=== PATIENT | female | born 1955 | race Caucasian/White ===

== ENCOUNTER 2017-01-11 16:41 | Emergency (ER) | payer SELFPAY ==
[~2017-01-11] VITALS: Ht 165.1 cm; Wt 58.1 kg
[2017-01-11] MEDS ORDERED: ASPIRIN 81 MG CHEW (CHILDREN'S ASA) PO ONE (17:15)
--- NOTE | 2017-01-11 17:16 | ED General ---
General Chief Complaint: General Problems/Pain Stated Complaint: CHEST PAIN Source of Information: Patient Exam Limitations: No Limitations (AMEE RAMÍREZ APRN) History of Present Illness Time Seen by Provider: 17:13 Initial Comments To ER with reports of bilateral shoulder and chest pain as well as neck pain. 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 Pain initially started in the right shoulder and was worsened with movement of the right shoulder and by the end today has spread to the left she states the pain radiates down the right arm. She has also noticed some redness and swelling over the second MCP joint of the right hand. No fevers or chills. No cough. No injury. She states that she is a smoker of one pack per day for 30 years. Denies any associated nausea or dyspnea palpitations syncope or pedal edema. She does have a strong family history of coronary artery disease. Today the pain persists and is worsened tremendously by any movement of the right shoulder. She states that she has had pain in her neck radiates down the right arm and her neck will "lock up" from time to time and this is been a long- term problem for many years Timing/Duration: 24 Hours Severity: Moderate Modifying Factors: worse with Movement Associated Systoms: Chest PainNo Cough, No Diaphoresis, No Fever/Chills, No Headaches, No Nausea/Vomiting (AMEE RAMÍREZ APRN) Allergies and Home Medications Allergies Coded Allergies: No Known Allergies (Verified Allergy, Unknown, 07/17/07) Home Medications Prednisone 20 Mg Tab #8 40 MG PO DAILY Prescribed by: AMEE RAMÍREZ on 01/11/17 1828 Constitutional: see HPINo chills, No fever EENTM: see HPI Respiratory: no symptoms reported Cardiovascular: no symptoms reported Genitourinary: no symptoms reported Musculoskeletal: see HPI joint pain Skin: no symptoms reported Psychiatric/Neurological: No Symptoms Reported Hematologic/Lymphatic: No Symptoms Reported Immunological/Allergic: no symptoms reported (AMEE RAMÍREZ APRN) Past Ynxspti-Rhowux-Ntbmnq Hx Patient Social History Recent Foreign Travel: No Contact w/Someone Who Travel: No (AMEE RAMÍREZ APRN) Cardiovascular Hx Cardiac Disorders: No (AMEE RAMÍREZ APRN) Reproductive System Hx Reproductive Disorders: No (AMEE RAMÍREZ APRN) Genitourinary Hx Genitourinary Disorders: No (AMEE RAMÍREZ APRN) Gastrointestinal Hx Gastrointestinal Disorders: No (AMEE RAMÍREZ APRN) Musculoskeletal Hx Musculoskeletal Disorders: No (AMEE RAMÍREZ APRN) Endocrine Hx Endocrine Disorders: No (AMEE RAMÍREZ APRN) HEENT HX ENT Disorders: No (AMEE RAMÍREZ APRN) Psychosocial Hx Psychiatric Problems: No (AMEE RAMÍREZ APRN) Blood Transfusions Hx Blood Disorders: No (AMEE RAMÍREZ APRN) Physical Exam Vital Signs Vital Sign - Last 12Hours 01/11/17 17:10 Temp 99.0 Pulse 100 Resp 18 B/P 163/94 Pulse Ox 98 O2 Delivery Room Air (ALCIDES PATRICK MD) Vital Signs Capillary Refill : (AMEE RAMÍREZ APRN) General Appearance: No Apparent Distress WD/WN Eyes: Bilateral Eye EOMI, Bilateral Eye Normal Inspection, Bilateral Eye PERRL HEENT: PERRL/EOMI TMs Normal Normal ENT Inspection Neck: Full Range of Motion Normal Inspection Respiratory: Normal Breath Sounds No Accessory Muscle Use No Respiratory Distress Gastrointestinal: Normal Bowel Sounds Soft Extremity: Normal Capillary Refill Normal Inspection Other (there is erythema and a bit of swelling over the dorsal aspect of the second right MCP joint. No lymphangitis. Shoulders are normal in appearance without erythema ecchymosis or swelling. There is no deformity. 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 Skin: Normal Color Warm/Dry (AMEE RAMÍREZ APRN) Progress/Results/Core Measures Results/Orders Lab Results Laboratory Tests Test 01/11/17 17:10 Range/Units Activated Partial Thromboplast Time 35 24-35 SEC Alanine Aminotransferase (ALT/SGPT) 16 0-55 U/L Albumin 4.0 3.2-4.5 G/DL Alkaline Phosphatase 88 40-136 U/L Anion Gap 11 5-14 MMOL/L Aspartate Amino Transf (AST/SGOT) 13 5-34 U/L BUN/Creatinine Ratio 20 Basophils # (Auto) 0.0 0.0-0.1 10^3/uL Basophils (%) (Auto) 0 0-10 % Blood Urea Nitrogen 13 7-18 MG/DL Calcium Level 9.4 8.5-10.1 MG/DL Carbon Dioxide Level 21 21-32 MMOL/L Chloride Level 108 H 98-107 MMOL/L Creatinine 0.66 0.60-1.30 MG/DL D-Dimer 0.40 0.00-0.49 UG/ML Eosinophils # (Auto) 0.2 0.0-0.3 10^3/uL Eosinophils (%) (Auto) 3 0-10 % Estimat Glomerular Filtration Rate > 60 Glucose Level 89 70-105 MG/DL Hematocrit 41 35-52 % Hemoglobin 14.6 11.5-16.0 G/DL INR Comment 1.1 0.8-1.4 Lymphocytes # (Auto) 2.2 1.0-4.0 X 10^3 Lymphocytes (%) (Auto) 24 12-44 % Magnesium Level 2.1 1.8-2.4 MG/DL Mean Corpuscular Hemoglobin 33 25-34 PG Mean Corpuscular Hemoglobin Concent 36 32-36 G/DL Mean Corpuscular Volume 92 80-99 FL Mean Platelet Volume 10.4 7.4-10.4 FL Monocytes # (Auto) 0.9 0.0-1.0 X 10^3 Monocytes (%) (Auto) 10 0-12 % Myoglobin 22.7 10.0-92.0 NG/ML Neutrophils # (Auto) 5.9 1.8-7.8 X 10^3 Neutrophils (%) (Auto) 64 42-75 % Platelet Count 203 130-400 10^3/uL Potassium Level 4.1 3.6-5.0 MMOL/L Prothrombin Time 13.6 12.2-14.7 SEC Red Blood Count 4.43 4.35-5.85 10^6/uL Red Cell Distribution Width 13.8 10.0-14.5 % Sodium Level 140 135-145 MMOL/L Total Bilirubin 0.5 0.1-1.0 MG/DL Total Protein 7.2 6.4-8.2 G/DL Troponin I < 0.30 <0.30 NG/ML White Blood Count 9.3 4.3-11.0 10^3/uL (ALCIDES PATRICK MD) Medications Given in ED Current Medications Medications Dose Ordered Sig/Donita Route Start Time Stop Time Status Last Admin Dose Admin Aspirin 324 mg ONCE ONCE PO 01/11/17 17:15 01/11/17 17:16 DC 2/23/17 17:16 324 MG Ketorolac Tromethamine 30 mg ONCE ONCE IVP 01/11/17 18:15 01/11/17 18:16 DC 01/11/17 18:17 30 MG Prednisone 60 mg ONCE ONCE PO 01/11/17 18:30 01/11/17 18:31 DC 01/11/17 18:34 60 MG (ALCIDES PATRICK MD) Vital Signs/I&O Vital Sign - Last 12Hours 01/11/17 17:10 Temp 99.0 Pulse 100 Resp 18 B/P 163/94 Pulse Ox 98 O2 Delivery Room Air (ALCIDES PATRICK MD) Progress Note : Progress Note I have seen and evaluated the patient with Amee Ramírez APRN. I have reviewed the labs, EKG and x-ray data. Patient has heart rate of 80 on exam by me. Lungs are clear to auscultation bilaterally without wheezes. Heart is regular in rate and rhythm without murmurs. Patient had complained of rash intermittently over the last several days but is currently without rash. She did receive Toradol 30 mg IV. We will initiate steroid with prednisone 60 mg by mouth and continue outpatient prednisone. She'll also initiate outpatient Pepcid [id number]. I did discuss with her the need to follow-up with her doctor related to the need for further evaluation and studies related to her neck pain as well as further evaluation and referral to cardiology for chest discomfort. Patient does have family history of cardiac disease and she is a smoker. Try troponin and d-dimer were negative today and EKG does not indicate cardiac-related event that has been going on for the last 24 hours. She would benefit from follow-up and further evaluation with cardiology though. This was discussed with the patient at length as well as her significant other who verbalize understanding. Discharged home with return precautions. Patient verbalize understanding instructions and agreement with plan. (ALCIDES PATRICK MD) ECG Initial ECG Impression Date: Jan 11, 2017 Initial ECG Impression Time: 16:58 Initial ECG Rate: 101 Initial ECG Rhythm: S.Tach Initial ECG Impression: Normal Comment Sinus tach with borderline inferior Q waves. Similar to previous of 07/18/2007 except for rate is faster today. No evidence of ST elevation NE. Normal axis. Interpreted by me. (ALCIDES PATRICK MD) Diagnostic Imaging Diagonstic Imaging: Xray Plain Films/CT/US/NM/MRI: chest Comments NAME: [facility] REC#: [id number] PT STATUS: REG ER : 1955 PHYSICIAN: AMEE RAMÍREZ APRN ADMIT DATE: 01/11/17/ER Signed Date of Exam: 01/11/17 CHEST 1 VIEW, AP/PA ONLY INDICATION: Chest pain. Comparison with 07/17/2007. FINDINGS: The lungs are well-aerated and clear. The heart is not enlarged. No pulmonary edema. No hilar adenopathy. No pneumothorax or pleural effusion. No bony abnormalities. IMPRESSION: Normal portable chest. Dictated by: Dictated on workstation # [id number] Dict: 01/11/171741 Trans: 01/11/171820 AMRIK [id number] Interpreted by: TAMMY CHARLES MD Electronically signed by:TAMMY CHARLES MD 01/11/17 1824 (ALCIDES PATRICK MD) Departure Impression Impression: Primary Impression: Cervical radiculopathy Additional Impression: Chest pain Qualified Code: R07.9 - Chest pain, unspecified Disposition: 01 HOME, SELF-CARE Condition: Stable Departure-Patient Inst. Decision time for Depature: 18:20 (AMEE RAMÍREZ APRN) Referrals: NO,LOCAL PHYSICIAN (PCP) Primary Care Physician Patient Instructions: Chest Pain, Radiculopathy (DC) Add. Discharge Instructions: 1. Return to ER for any concerns 2. Steroids as directed 3. See your doctor next week follow 4. Take Pepcid 20 mg twice daily [id number] for the next week as the steroids may upset your All discharge instructions reviewed with patient and/or family. Voiced understanding. Scripts Prednisone 20 Mg Tab40 Mg PO DAILY #8 TAB Prov:AMEE RAMÍREZ APRN 01/11/17 Copy Copies To 1: ERINN RECIO MD, PETER J APRN Jan 11, 2017 17:16 ALCIDES PATRICK MD Jan 11, 2017 18:40
[2017-01-11 17:19] LABS: BASOPHILS % (AUTO) 0 % (0-10); EOSINOPHILS # (AUTO) 0.2 10^3/uL (0.0-0.3); EOSINOPHILS % (AUTO) 3 % (0-10); LYMPHOCYTES # (AUTO) 2.2 X 10^3 (1.0-4.0); LYMPHOCYTES % (AUTO) 24 % (12-44); MEAN CORPUSCULAR HEMOGLOBIN 33 PG (25-34); MEAN CORPUSCULAR HGB CONC 36 G/DL (32-36); MEAN CORPUSCULAR VOLUME 92 FL (80-99); MEAN PLATELET VOLUME 10.4 FL (7.4-10.4); MONOCYTES # (AUTO) 0.9 X 10^3 (0.0-1.0); MONOCYTES % (AUTO) 10 % (0-12); NEUTROPHILS # (AUTO) 5.9 X 10^3 (1.8-7.8); NEUTROPHILS % (AUTO) 64 % (42-75); PLATELET COUNT 203 10^3/uL (130-400); RED BLOOD COUNT 4.43 10^6/uL (4.35-5.85); RED CELL DISTRIBUTION WIDTH 13.8 % (10.0-14.5); WHITE BLOOD COUNT 9.3 10^3/uL (4.3-11.0)
[2017-01-11 17:29] LABS: INR 1.1 (0.8-1.4); PROTHROMBIN TIME PATIENT 13.6 SEC (12.2-14.7)
[2017-01-11 17:42] LABS: ALANINE AMINOTRANSFERASE 16 U/L (0-55); ANION GAP 11 MMOL/L (5-14); ASPARTATE AMINO TRANSFERASE 13 U/L (5-34); BILIRUBIN,TOTAL 0.5 MG/DL (0.1-1.0); BLOOD UREA NITROGEN 13 MG/DL (7-18); BUN/CREATININE RATIO 20; CALCIUM 9.4 MG/DL (8.5-10.1); CARBON DIOXIDE 21 MMOL/L (21-32); CHLORIDE 108 MMOL/L (98-107); CREATININE SERUM 0.66 MG/DL (0.60-1.30); GFR ESTIMATED > 60; GLUCOSE 89 MG/DL (70-105); MAGNESIUM 2.1 MG/DL (1.8-2.4); POTASSIUM 4.1 MMOL/L (3.6-5.0); SODIUM 140 MMOL/L (135-145); TOTAL PROTEIN 7.2 G/DL (6.4-8.2)
--- NOTE | 2017-01-11 17:45 | Diagnostic Imaging Report ---
INDICATION: Chest pain. Comparison with 07/17/2007. FINDINGS: The lungs are well-aerated and clear. The heart is not enlarged. No pulmonary edema. No hilar adenopathy. No pneumothorax or pleural effusion. No bony abnormalities. IMPRESSION: Normal portable chest. Dictated by: Dictated on workstation # [id number]
[2017-01-11 17:49] LABS: MYOGLOBIN SERUM 22.7 NG/ML (10.0-92.0)
[2017-01-11] MEDS ORDERED: KETOROLAC 30 MG/ML VIAL IVP ONE (18:15)
[2017-01-11] MEDS ORDERED: PRD20T PO (18:28)
[2017-01-11] MEDS ORDERED: predniSONE 20 MG TAB PO ONE (18:30)
[2017-01-11 18:39] VITALS: BP 146/85
== END 2017-01-11 18:39 | disposition home or self-care (01) ==
LOC: EDUNIT# 16:41 → ER 16:43
DX: M54.12 Radiculopathy, cervical region (principal); R07.9 Chest pain, unspecified; F17.210 Nicotine dependence, cigarettes, uncomplicated
CPT/HCPCS: 36415; 71010; 80053; 83735; 83874; 84484; 85025; 85379; 85610; 85730; 93005; 93041; 96374

== ENCOUNTER 2020-04-04 06:34 | Emergency (ER) | payer MEDICARE, OTHER ==
[~2020-04-04 06:34] MED LIST: PRD20T PO
[2020-04-04] MEDS ORDERED: PHENYLEPHRINE 0.25% NASAL SPR (NEO-SYNEPHRINE) 15 ML NS ONE (06:35)
[2020-04-04] MEDS ORDERED: PHENYLEPHRINE 0.25% NASAL SPR (NEO-SYNEPHRINE) 15 ML NS PRN (07:00)
[2020-04-04 07:26] LABS: BASOPHILS % (AUTO) 0 % (0-10); EOSINOPHILS # (AUTO) 0.1 10^3/uL (0.0-0.3); EOSINOPHILS % (AUTO) 2 % (0-10); HEMATOCRIT 44 % (35-52); HEMOGLOBIN 15.1 G/DL (11.5-16.0); LYMPHOCYTES % (AUTO) 22 % (12-44); MEAN CORPUSCULAR HEMOGLOBIN 32 PG (25-34); MEAN CORPUSCULAR HGB CONC 35 G/DL (32-36); MEAN CORPUSCULAR VOLUME 93 FL (80-99); MEAN PLATELET VOLUME 10.3 FL (7.4-10.4); MONOCYTES # (AUTO) 0.5 X 10^3 (0.0-1.0); MONOCYTES % (AUTO) 6 % (0-12); NEUTROPHILS # (AUTO) 6.1 X 10^3 (1.8-7.8); NEUTROPHILS % (AUTO) 70 % (42-75); PLATELET COUNT 257 10^3/uL (130-400); RED CELL DISTRIBUTION WIDTH 14.4 % (10.0-14.5); WHITE BLOOD COUNT 8.7 10^3/uL (4.3-11.0)
--- NOTE | 2020-04-04 07:30 | ED EENT ---
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 DENIES BLOOD THINNERS. Source: patient, EMS Exam Limitations: no limitations History of Present Illness Date Seen by Provider: April 04, 2020 Time Seen by Provider: 06:40 Initial Comments Here by EMS with report of acute onset of nosebleed that started approximately 30 minutes prior to arrival. Denies being on blood thinners. Has never had anything like this before. EMS did have patient applied direct pressure. No reported recent injuries. Patient is not on blood thinners. She does smoke. Denies fevers or upper respiratory symptoms prior to incident. Timing/Duration: this morning Severity: moderate Location: nose Prearrival Treatment: squeezing nostrils Modifying Factors: Improves With Rest Associated Symptoms: No cough, No fever, No sinus infection, No sore throat Allergies and Home Medications Allergies Coded Allergies: No Known Allergies (Verified Allergy, Unknown, 07/17/07) Home Medications Prednisone 20 Mg Tab, 40 MG PO DAILY Prescribed by: AMEE VENTURA on 01/11/17 1824 Patient Home Medication List Home Medication List Reviewed: Yes Review of Systems Review of Systems Constitutional: see HPI; No chills, No fever Eyes: No Symptoms Reported Ears: No Symptoms Reported Nose: see HPI, clots, epistaxis Mouth: no symptoms reported Throat: no symptoms reported Respiratory: no symptoms reported Cardiovascular: no symptoms reported Past Wybbxab-Xjfdvi-Icxclj Hx Past Med/Social Hx: Reviewed Nursing Past Med/Soc Hx Patient Social History Alcohol Use: Denies Use Recreational Drug Use: No Smoking Status: Current Everyday Smoker Recent Foreign Travel: No Contact w/Someone Who Travel: No Recent Infectious Disease Expo: No Recent Hopitalizations: No Physical Abuse: No Sexual Abuse: No Mistreated: No Fear: No Past Medical History Surgeries: Yes (NERVE CUT IN TOE) Respiratory: No Cardiac: No Neurological: No Reproductive Disorders: No Genitourinary: No Gastrointestinal: No Musculoskeletal: Yes Chronic Back Pain Endocrine: No Psychosocial: Yes Anxiety Integumentary: No Blood Disorders: No Family Medical History Reviewed Nursing Family Hx Physical Exam Vital Signs Vital Signs - First Documented 04/04/20 06:34 Temp 36.4 Pulse 121 Resp 22 B/P (MAP) 166/103 (124) Height, Weight, BMI Height: 5'5" Weight: 128lbs. oz. 58.165900ph; BMI Method:Stated General Appearance: WD/WN, mild distress Nose: active bleeding (left side); No sinus tenderness Mouth/Throat: other (blood clot noted in posterior pharynx with blood along will left border) Neck: full range of motion, supple Cardiovascular: regular rate, rhythm, no murmur Respiratory: lungs clear, normal breath sounds Neurologic/Psychiatric: alert, oriented x 3 Skin: normal color, warm/dry Progress/Results/Core Measures Results/Orders Lab Results Laboratory Tests Test 04/04/20 07:19 Range/Units White Blood Count 8.7 4.3-11.0 10^3/uL Red Blood Count 4.66 4.35-5.85 10^6/uL Hemoglobin 15.1 11.5-16.0 G/DL Hematocrit 44 35-52 % Mean Corpuscular Volume 93 80-99 FL Mean Corpuscular Hemoglobin 32 25-34 PG Mean Corpuscular Hemoglobin Concent 35 32-36 G/DL Red Cell Distribution Width 14.4 10.0-14.5 % Platelet Count 257 130-400 10^3/uL Mean Platelet Volume 10.3 7.4-10.4 FL Neutrophils (%) (Auto) 70 42-75 % Lymphocytes (%) (Auto) 22 12-44 % Monocytes (%) (Auto) 6 0-12 % Eosinophils (%) (Auto) 2 0-10 % Basophils (%) (Auto) 0 0-10 % Neutrophils # (Auto) 6.1 1.8-7.8 X 10^3 Lymphocytes # (Auto) 2.0 1.0-4.0 X 10^3 Monocytes # (Auto) 0.5 0.0-1.0 X 10^3 Eosinophils # (Auto) 0.1 0.0-0.3 10^3/uL Basophils # (Auto) 0.0 0.0-0.1 10^3/uL Prothrombin Time 12.7 12.2-14.7 SEC INR Comment 0.9 0.8-1.4 Sodium Level 141 135-145 MMOL/L Potassium Level 3.8 3.6-5.0 MMOL/L Chloride Level 109 H 98-107 MMOL/L Carbon Dioxide Level 21 21-32 MMOL/L Anion Gap 11 5-14 MMOL/L Blood Urea Nitrogen 12 7-18 MG/DL Creatinine 0.70 0.60-1.30 MG/DL Estimat Glomerular Filtration Rate > 60 BUN/Creatinine Ratio 17 Glucose Level 104 70-105 MG/DL Calcium Level 9.0 8.5-10.1 MG/DL Corrected Calcium 8.9 8.5-10.1 MG/DL Total Bilirubin 0.4 0.1-1.0 MG/DL Aspartate Amino Transf (AST/SGOT) 14 5-34 U/L Alanine Aminotransferase (ALT/SGPT) 14 0-55 U/L Alkaline Phosphatase 85 40-136 U/L Total Protein 7.2 6.4-8.2 GM/DL Albumin 4.1 3.2-4.5 GM/DL My Orders Orders - ALCIDES PATRICK MD Phenylephrine 0.25% Nasal Spra (Don-Syne (04/04/20 06:35) Phenylephrine 0.25% Nasal Spra (Don-Syne (04/04/20 07:00) Cbc With Automated Diff (04/04/20 07:09) Comprehensive Metabolic Panel (04/04/20 07:09) Protime With Inr (04/04/20 07:09) Amlodipine Tablet (Norvasc Tablet) (04/04/20 08:15) Medications Given in ED Current Medications Medications Dose Ordered Sig/Donita Route Start Time Stop Time Status Last Admin Dose Admin Amlodipine Besylate 5 mg ONCE ONCE PO 04/04/20 08:15 04/04/20 08:16 DC 04/04/20 08:08 5 MG Phenylephrine HCl 1 OR 2 SPRAYS TO NOSTRIL Q4H PRN NS 04/04/20 07:00 04/04/20 06:57 15 ML Vital Signs/I&O 04/04/20 06:34 Temp 36.4 Pulse 121 Resp 22 B/P (MAP) 166/103 (124) Blood Pressure Mean: 124 Progress Progress Note : Progress Note Seen and evaluated. Patient was able to spit out large clot in the posterior pharynx. Don-Synephrine 3 sprays to each nostril and nasal clamp placed. Monitor patient. 0710: Clamp removed and it does appear that bleeding has subsided currently. She did spit out another clot. We will check basic labs and monitor. Patient may require anterior packing. Monitor patient. 0833: Ultimately had to place rapid rhino 4.5 cm anterior packing which does seem to have stopped the bleeding. Patient was given amlodipine 5 mg by mouth for hypertension. Bleeding appears to have stopped now. Patient does have tight nasal canal and a do not believe I would build to get a deeper packing at this point but she seems to have stopped bleeding. I did discuss with her about follow-up with her doctor regarding hypertension and what Dr. Zheng's office for ENT of her choice for evaluation related to the nosebleed. Patient states understanding. We will keep rapid Rhino in place for now until follow-up or she will return here on Sunday or Sunday for removal. Discharged home with return precautions. Patient verbalize understanding instructions and agreement with plan. Departure Impression Primary Impression: Epistaxis Disposition: HOME, SELF-CARE Condition: Improved Departure-Patient Inst. Decision time for Depature: 08:35 Referrals: JOSE ZHENG MD NO,LOCAL PHYSICIAN (PCP) Primary Care Physician Patient Instructions: Nosebleeds (DC) Add. Discharge Instructions: All discharge instructions reviewed with patient and/or family. Voiced understanding. Keep packing in place. Follow-up with Dr. Zheng or ENT of your choice within the next 2-3 days for recheck and further evaluation and to remove nasal packing. If you're unable to get in with Dr. Zheng by Sunday, return here for recheck and to have packing removed. Take medications as directed. Return for return of bleeding, weakness, nausea, vomiting, fever, breathing problems or other concerns as needed. Scripts Amlodipine Besylate (Amlodipine Besylate) 5 Mg Tablet 5 MG PO DAILY for 30 Days, #30 TAB 0 Refills Prov: ALCIDES PATRICK MD 04/04/20 Amoxicillin/Potassium Clav (Amox Tr-K Clv 875-125 mg Tab) 1 Each Tablet 1 EACH PO BID, #7 TAB 0 Refills Prov: ALCIDES PATRICK MD 04/04/20 Copy Copies To 1: JOSE ZHENG MD, TIMOTHY D MD April 04, 2020 07:30
[2020-04-04 07:38] LABS: INR 0.9 (0.8-1.4); PROTHROMBIN TIME PATIENT 12.7 SEC (12.2-14.7)
[2020-04-04 07:40] LABS: ALBUMIN 4.1 GM/DL (3.2-4.5); CHLORIDE 109 MMOL/L (98-107); POTASSIUM 3.8 MMOL/L (3.6-5.0); SODIUM 141 MMOL/L (135-145)
[2020-04-04 07:42] LABS: GLUCOSE 104 MG/DL (70-105)
[2020-04-04 07:43] LABS: TOTAL PROTEIN 7.2 GM/DL (6.4-8.2)
[2020-04-04 07:44] LABS: BILIRUBIN,TOTAL 0.4 MG/DL (0.1-1.0); CARBON DIOXIDE 21 MMOL/L (21-32)
[2020-04-04 07:46] LABS: ALKALINE PHOSPHATASE 85 U/L (40-136); GFR ESTIMATED > 60
[2020-04-04 07:47] LABS: BUN/CREATININE RATIO 17
[2020-04-04 07:49] LABS: ALANINE AMINOTRANSFERASE 14 U/L (0-55)
[2020-04-04] MEDS ORDERED: amLODIPine 5 MG (NORVASC) TAB PO ONE (08:15)
[2020-04-04] MEDS ORDERED: AMLO5TAB9 PO (08:45)
[2020-04-04] MEDS ORDERED: AMOX1TAB12 PO (08:45)
[2020-04-04] MEDS ORDERED: AUGMENTIN 875 MG TAB (AMOXICILLIN/CLAVULANATE) ONE (08:50)
[2020-04-04 08:59] VITALS: BP 160/112
== END 2020-04-04 09:01 | disposition home or self-care (01) ==
LOC: EDUNIT# 06:37 → ER 06:39
DX: R04.0 Epistaxis (principal); F17.200 Nicotine dependence, unspecified, uncomplicated; Z79.52 Long term (current) use of systemic steroids
CPT/HCPCS: 36415; 80053; 85025; 85610; 99283

== ENCOUNTER 2020-04-04 11:31 | Emergency (ER) | payer MEDICARE ==
[~2020-04-04 11:31] MED LIST changes: +AMLO5TAB9 PO; +AMOX1TAB12 PO
[2020-06-24] MEDS ORDERED: AMLO5TAB9 PO (14:24)
[2020-06-24] MEDS ORDERED: ACET-2650 PO (14:24)
[2020-06-24] MEDS ORDERED: PROP10TA8 PO (14:24)
[2020-06-24] MEDS ORDERED: NAPR220C11 PO (14:24)
[2020-06-24] MEDS ORDERED: CITA20TA12 PO (14:24)
[2020-06-24] MEDS ORDERED: DICY20TA10 PO (14:24)
[2020-06-24] MEDS ORDERED: CALC-78 PO (14:24)
[2020-06-24] MEDS ORDERED: MV-M1TAB69 PO (14:24)
[2020-06-25] MEDS ORDERED: ASPI-999 PO (14:20)
[2020-06-25] MEDS ORDERED: ATOR80TA76 PO (14:20)
[2020-06-25] MEDS ORDERED: NITR0.4T42 SL (14:20)
[2020-06-25] MEDS ORDERED: METO50TA7 PO (14:20)
== END 2020-04-04 11:45 | disposition left against medical advice (07) ==
LOC: EDUNIT# 11:31 → ER 11:32
DX: R04.0 Epistaxis (principal)

== ENCOUNTER 2020-04-05 09:44 | Emergency (ER) | payer MEDICARE ==
[~2020-04-05] VITALS: Ht 165 cm; Wt 56.9 kg
--- NOTE | 2020-04-05 10:12 | ED Cardiac General ---
History of Present Illness General Stated Complaint: WEAKNESS;HIGH BP Source: patient Exam Limitations: no limitations History of Present Illness Date Seen by Provider: April 05, 2020 Time Seen by Provider: 09:53 Initial Comments Patient presents to ER by private conveyance from home with chief complaint of nosebleed since yesterday morning when she blew her nose. She came to the ER and was to follow-up with ENT sometime this week. She has not made contact with Dr. Zheng yet. She says she feels like it has continued to bleed on the back of her nose and she has spit up several blood clots. She feels weak and her heart was pounding and noticed yesterday and today her blood pressure was elevated 160-180 systolic. She's not having any nausea, chest pain, shortness of breath but feels very weak and is concerned she may have lost too much blood. She does of a history of significant anxiety however denies that she takes any medications for. She follows with pizano. No coronary history nor lung history. She does not take blood thinners. Yesterday amlodipine was initiated for her hypertension and she was given a dose of Augmentin and told to pick someone up today. She has not picked up either medication yet. Echocardiogram by Dr. Owen 2006: Normal left ventricular size and systolic function with an EF of 70%. Allergies and Home Medications Allergies Coded Allergies: No Known Allergies (Verified Allergy, Unknown, 07/17/07) Home Medications Amlodipine Besylate 5 Mg Tablet, 5 MG PO DAILY Prescribed by: ALCIDES PATRICK on 04/04/20 0845 Amoxicillin/Potassium Clav 1 Each Tablet, 1 EACH PO BID Prescribed by: ALCIDES PATRICK on 04/04/20 0845 Prednisone 20 Mg Tab, 40 MG PO DAILY Prescribed by: AMEE VENTURA on 01/11/17 1828 Patient Home Medication List Home Medication List Reviewed: Yes Review of Systems Review of Systems Constitutional: No chills, No diaphoresis EENTM: No Blurred Vision, No Double Vision Respiratory: Denies Cough, Denies Shortness of Air Cardiovascular: Denies Chest Pain, Denies Edema, Denies Irregular Heart Rate; Lightheadedness; Denies Palpitations, Denies Syncope Gastrointestinal: Denies Abdominal Pain, Denies Nausea Genitourinary: Denies Burning, Denies Discharge, Denies Drainage Musculoskeletal: No back pain, No joint pain Skin: No dryness, No pruritus, No rash Psychiatric/Neurological: Anxiety; Denies Depressed, Denies Headache All Other Systems Reviewed Negative Unless Noted: Yes Past Znlxnyu-Rrtpxl-Nymsjs Hx Patient Social History Alcohol Use: Denies Use Recreational Drug Use: No Smoking Status: Never a Smoker Recent Foreign Travel: No Contact w/Someone Who Travel: No Recent Hopitalizations: No Past Medical History Surgeries: Yes (NERVE CUT IN TOE) Respiratory: No Cardiac: No Neurological: No Reproductive Disorders: No Genitourinary: No Gastrointestinal: No Musculoskeletal: Yes Chronic Back Pain Endocrine: No Psychosocial: Yes Anxiety Integumentary: No Blood Disorders: No Physical Exam Vital Signs Vital Signs - First Documented 04/05/20 10:13 Temp 36.4 Pulse 99 Resp 18 B/P (MAP) 189/123 (145) Pulse Ox 98 Capillary Refill : Height, Weight, BMI Height: 5'5" Weight: 128lbs. oz. 58.358502dy; BMI Method:Stated General Appearance: Anxious, Mild Distress HEENT: PERRL/EOMI, Pharynx Normal (without clots or bloody secretions), Moist Mucous Membranes, Other (left knee air with an amply inflated Rhino Rocket.) Neck: Full Range of Motion, Normal Inspection, Non Tender, Supple Respiratory: Lungs Clear, Normal Breath Sounds, No Accessory Muscle Use, No Respiratory Distress Cardiovascular: Regular Rate, Rhythm, No Edema, Normal Peripheral Pulses Extremity: Normal Capillary Refill, Normal Inspection, No Pedal Edema Neurologic/Psychiatric: Alert, Oriented x3, No Motor/Sensory Deficits, Other (anxious affect) Skin: Normal Color, Warm/Dry Progress/Results/Core Measures Results/Orders Lab Results Laboratory Tests Test 04/05/20 10:07 Range/Units White Blood Count 11.0 4.3-11.0 10^3/uL Red Blood Count 4.77 4.35-5.85 10^6/uL Hemoglobin 15.5 11.5-16.0 G/DL Hematocrit 44 35-52 % Mean Corpuscular Volume 92 80-99 FL Mean Corpuscular Hemoglobin 33 25-34 PG Mean Corpuscular Hemoglobin Concent 35 32-36 G/DL Red Cell Distribution Width 14.4 10.0-14.5 % Platelet Count 295 130-400 10^3/uL Mean Platelet Volume 10.4 7.4-10.4 FL Neutrophils (%) (Auto) 73 42-75 % Lymphocytes (%) (Auto) 22 12-44 % Monocytes (%) (Auto) 5 0-12 % Eosinophils (%) (Auto) 1 0-10 % Basophils (%) (Auto) 0 0-10 % Neutrophils # (Auto) 8.0 H 1.8-7.8 X 10^3 Lymphocytes # (Auto) 2.4 1.0-4.0 X 10^3 Monocytes # (Auto) 0.5 0.0-1.0 X 10^3 Eosinophils # (Auto) 0.1 0.0-0.3 10^3/uL Basophils # (Auto) 0.0 0.0-0.1 10^3/uL Sodium Level 138 135-145 MMOL/L Potassium Level 4.1 3.6-5.0 MMOL/L Chloride Level 105 98-107 MMOL/L Carbon Dioxide Level 19 L 21-32 MMOL/L Anion Gap 14 5-14 MMOL/L Blood Urea Nitrogen 10 7-18 MG/DL Creatinine 0.71 0.60-1.30 MG/DL Estimat Glomerular Filtration Rate > 60 BUN/Creatinine Ratio 14 Glucose Level 103 70-105 MG/DL Calcium Level 9.7 8.5-10.1 MG/DL Troponin I < 0.028 <0.028 NG/ML My Orders Orders - TASHA ESTRELLA Cbc With Automated Diff (04/05/20 10:04) Basic Metabolic Panel (04/05/20 10:04) Ekg Tracing (04/05/20 10:04) Continuous Ekg Monitoring (04/05/20 10:04) Troponin I (04/05/20 10:04) Alprazolam Tablet (Xanax Tablet) (04/05/20 10:45) Vital Signs/I&O 04/05/20 10:13 Temp 36.4 Pulse 99 Resp 18 B/P (MAP) 189/123 (145) Pulse Ox 98 Progress Progress Note #1: Time: 10:10 Progress Note A CBC will rule out significant anemia or ischemia which might explain her feeling of weakness; also complete an EKG, troponin and BMP. She does not have uncontrolled hemorrhage at this time. Hemoglobin from yesterday was 15.1. PT/INR, platelets and CMP were all unremarkable. It's possible that she will have a significant shift in her hemoglobin since the bleeding only started about an hour prior to that initial set of labs being collected. This could be related to her presentation or anxiety could be the source of her hypertension and feeling of weakness. Patient's vital signs are largely unremarkable. Heart rate initially was around 100 however after we have left the room her heart rate is gone down to the 80s and her blood pressure has come down from 189 systolic to 156 in just 10 minutes. Goal blood pressure at this time given her anxiety would be systolic less than 150-160. Progress Note #2: Time: 10:42 Progress Note Patient's blood pressure marginally improved. 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 She feels a little jittery so we have offered her a half a milligram of Xanax as I suspect most of this is anxiety related to her health issue. If she feels that this helps her then she can talk to Gabbi pizano about continuing this medication or similar medications. I suspect this anxiety is short-term related to her epistaxis. We have also strongly encourage her to call and make an appointment with Dr. Zheng which she said she will do after she picks up her medications from the pharmacy. We have given her good return precautions and she feels more comfortable about going home at this time. She is not driving herself today. Hemoglobin is stable. She's not having any chest pain shortness of breath or syncope. Goal is to get her blood pressure down over the next week or 2. Initial ECG Impression Date: April 05, 2020 Initial ECG Impression Time: 10:25 Initial ECG Rate: 76 Initial ECG Rhythm: Normal Sinus Initial ECG Intervals: Normal Initial ECG Impression: Normal Comment Normal sinus rhythm without medically relevant signs for ischemia or ST changes. Departure Impression Primary Impression: Posterior epistaxis Additional Impressions: Hypertension Qualified Codes: I10 - Essential (primary) hypertension Anxiety about health Disposition: 01 HOME, SELF-CARE Condition: Stable Departure-Patient Inst. Decision time for Depature: 10:45 Referrals: NO,LOCAL PHYSICIAN (PCP) Primary Care Physician JAROD PIZANO (Family) Primary Care Physician JOSE ZHENG MD Patient Instructions: Medicines for High Blood Pressure, Controlling Your Blood Pressure Through Lifestyle, Nosebleeds (DC) Add. 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 The Xanax may cause you to be a little drowsy for a few hours. If you feel this medication was helpful you can discuss this with Gabbi pizano. I highly encourage you to follow-up in one to 2 weeks with your primary care provider to discuss your high blood pressure. Today please call Dr. Zheng's clinic and request follow-up appointment in the next 2-3 days to have the nasal tampon removed and appropriate further management. If you have increased bleeding, chest pain, inability to catch your breath despite rest or any other worrisome symptoms then please return to the ER for further management. TASHA ESTRELLA April 05, 2020 10:12
[2020-04-05 10:16] LABS: BASOPHILS % (AUTO) 0 % (0-10); EOSINOPHILS # (AUTO) 0.1 10^3/uL (0.0-0.3); EOSINOPHILS % (AUTO) 1 % (0-10); HEMATOCRIT 44 % (35-52); HEMOGLOBIN 15.5 G/DL (11.5-16.0); LYMPHOCYTES # (AUTO) 2.4 X 10^3 (1.0-4.0); LYMPHOCYTES % (AUTO) 22 % (12-44); MEAN CORPUSCULAR HEMOGLOBIN 33 PG (25-34); MEAN CORPUSCULAR HGB CONC 35 G/DL (32-36); MEAN CORPUSCULAR VOLUME 92 FL (80-99); MEAN PLATELET VOLUME 10.4 FL (7.4-10.4); MONOCYTES # (AUTO) 0.5 X 10^3 (0.0-1.0); MONOCYTES % (AUTO) 5 % (0-12); NEUTROPHILS % (AUTO) 73 % (42-75); PLATELET COUNT 295 10^3/uL (130-400); RED CELL DISTRIBUTION WIDTH 14.4 % (10.0-14.5)
[2020-04-05 10:27] LABS: CHLORIDE 105 MMOL/L (98-107); POTASSIUM 4.1 MMOL/L (3.6-5.0); SODIUM 138 MMOL/L (135-145)
[2020-04-05 10:28] LABS: CALCIUM 9.7 MG/DL (8.5-10.1)
[2020-04-05 10:29] LABS: GLUCOSE 103 MG/DL (70-105)
[2020-04-05 10:30] LABS: CARBON DIOXIDE 19 MMOL/L (21-32)
[2020-04-05 10:33] LABS: CREATININE SERUM 0.71 MG/DL (0.60-1.30); GFR ESTIMATED > 60
[2020-04-05 10:34] LABS: BUN/CREATININE RATIO 14
[2020-04-05] MEDS ORDERED: ALPRAZolam 1 MG (XANAX) TAB PO ONE (10:45)
[2020-04-05 10:59] VITALS: BP 169/94
== END 2020-04-05 11:00 | disposition home or self-care (01) ==
LOC: EDUNIT# 09:44 → ER 09:45
DX: R04.0 Epistaxis (principal); I10 Essential (primary) hypertension; F41.9 Anxiety disorder, unspecified; Z79.52 Long term (current) use of systemic steroids
CPT/HCPCS: 36415; 80048; 84484; 85025

== ENCOUNTER → 2020-05-17 | Outpatient (CLI) | payer MEDICARE ==
--- NOTE | 2020-05-17 11:26 | Diagnostic Imaging Report ---
PROCEDURE: US Non-ob pelvis comp/trans. TECHNIQUE: Multiple realtime grayscale images were obtained of the pelvis in various projections endovaginally. Transabdominal imaging was also performed. INDICATION: Pelvic cramping. FINDINGS: The uterus is anteverted measuring 5.6 x 2.4 x 3.5 cm. Endometrium is 3 mm in thickness. There is moderate vascularity to the myometrium but no discrete myometrial mass is detected. Right ovary measures 1.5 x 0.8 x 0.9 cm and the left ovary measures 2.1 x 1.3 x 1.1 cm. There is blood flow to the ovaries. No adnexal mass or free fluid is detected. IMPRESSION: Essentially unremarkable pelvic ultrasound. Dictated by: Dictated on workstation # [id number]
== END ==
LOC: RAD 09:29
PROVIDERS: ATTEND Obstetrics & Gynecology
DX: N81.2 Incomplete uterovaginal prolapse (principal); R14.0 Abdominal distension (gaseous)
CPT/HCPCS: 76830; 76856